=== PATIENT | female | born 1950 | race American Indian/Alaskan Native ===

== ENCOUNTER 2017-07-20 12:20 | Emergency (ER) | payer MEDICARE ==
[2017-07-20 12:42] VITALS: BP 139/95
[2017-07-20] MEDS ORDERED: XYLOCAINE 2% INFILTRATI ONE ×2 (13:59→16:18)
--- NOTE | 2017-07-20 14:29 | Emergency Department Report ---
HPI - General Chief Complaint: Dental/Oral Time Seen by Provider: 07/20/17 14:12 - HPI HPI: 67-year-old black female is an ED today stating that a can fell on right lip while at a store. Complain of right inner lip laceration, bleeding controlled. ED Past Medical Hx - Past Medical History Previous Medical History?: Yes Hx Hypertension: Yes Hx GERD: Yes Additional medical history: BENIGN TREMORS - Surgical History Past Surgical History?: Yes Hx Appendectomy: Yes Additional Surgical History: hysterectomy - Social History Smoking Status: Former Smoker Substance Use Type: Alcohol, Marijuana - Medications Home Medications: Home Medications Medication Instructions Recorded Confirmed Last Taken Type Cephalexin [Keflex] 500 mg PO TID #21 capsule 07/21/14 Unknown Rx Amoxicillin/Potassium Clav 1 each PO BID #20 tablet 07/20/17 Unknown Rx [Augmentin 875-125 Tablet] traMADol [Ultram] 50 mg PO Q6HR PRN #10 tablet 07/20/17 Unknown Rx ED Review of Systems ROS: Stated complaint: BUSTED LIP Other details as noted in HPI Comment: All other systems reviewed and negative Eyes: denies: eye pain ENT: denies: ear pain, throat pain Respiratory: denies: cough Skin: other (laceration inner lip right side) Physical Exam - Physical Exam Vital Signs: Vital Signs 07/20/17 12:39 Temperature 99.2 F Pulse Rate 85 Respiratory 18 Rate Blood Pressure 139/95 O2 Sat by Pulse 98 Oximetry Physical Exam: Gen. alert and oriented 3 in no distress Head atraumatic normocephalic Eyes PERR LA EOMI Chest regular rate and rhythm normal S1-S2 lungs clear bilaterally Abdomen soft nondistended Back no point tenderness paravertebral tenderness Neuro no focal deficit. Psych normal mood. skin: right inner lip laceration 4 cm. ED Course Vital Signs 07/20/17 12:39 Temperature 99.2 F Pulse Rate 85 Respiratory 18 Rate Blood Pressure 139/95 O2 Sat by Pulse 98 Oximetry - Laceration /Wound Repair Right Face Wound Location: face, mouth Wound's Depth, Shape: linear Wound Explored: no foreign body removed Anesthesia: 1% Lidocaine Wound Debrided: moderate Wound Repaired With: sutures Suture Size/Type: 4:0 Number of Sutures: 5 Layer Closure?: Yes Critical care attestation.: If time is entered above; I have spent that time in minutes in the direct care of this critically ill patient, excluding procedure time. ED Disposition Clinical Impression: Laceration of lip with other complication Qualifiers: Encounter type: initial encounter Qualified Code(s): S01.511A - Laceration without foreign body of lip, initial encounter Disposition: TO HOME OR SELFCARE Is pt being admited?: No Does the pt Need Aspirin: No Condition: Stable Prescriptions: Amoxicillin/Potassium Clav [Augmentin 875-125 Tablet] 1 each PO BID #20 tablet traMADol [Ultram] 50 mg PO Q6HR PRN #10 tablet PRN Reason: Pain Referrals: ANGEL GARCIA MD [Primary Care Provider] - 3-5 Days BETO ALBRIGHT MD [Staff Physician] - 3-5 Days
== END 2017-07-20 14:39 | disposition home or self-care (01) ==
LOC: ED 12:20
DX: S01.511A Laceration without foreign body of lip, initial encounter (principal); I10 Essential (primary) hypertension; K21.9 Gastro-esophageal reflux disease without esophagitis; Z87.891 Personal history of nicotine dependence; Z90.49 Acquired absence of other specified parts of digestive tract; Z90.710 Acquired absence of both cervix and uterus; W26.8XXA Contact with other sharp object(s), not elsewhere classified, initial encounter; Y93.89 Activity, other specified; Y92.89 Other specified places as the place of occurrence of the external cause; Y99.8 Other external cause status
CPT/HCPCS: 99282

== ENCOUNTER 2017-10-23 01:15 | Emergency (ER) | payer MEDICARE ==
[2017-10-23 01:28] VITALS: BP 126/72
--- NOTE | 2017-10-23 03:28 | Cat Scan Report ---
FINAL REPORT EXAM: CT HEAD/BRAIN WO CON HISTORY: head Injury TECHNIQUE: Routine axial imaging was obtained of the brain without IV contrast. FINDINGS: The ventricular system is appropriate in size and is symmetric. There is diminished attenuation of the periventricular white matter compatible with chronic microvascular disease changes. There is no evidence of acute stroke or hemorrhage. There is no evidence of skull fracture. The mastoid air cells are well pneumatized. The sinuses reveal patchy mucosal thickening in the right ethmoid air cells. There is a deformity of the left side of the nasal bone compatible with fracture of uncertain age. IMPRESSION: No evidence of acute stroke or hemorrhage. Diminished attenuation of the periventricular white matter compatible chronic microvascular disease changes. Deformity of the left-sided nasal bone compatible with fracture of uncertain age.
--- NOTE | 2017-10-23 03:32 | Cat Scan Report ---
FINAL REPORT EXAM: CT FACIAL BONES WO CON HISTORY: left face swelling and right jaw pain TECHNIQUE: Routine axial imaging was obtained of the facial bones without IV contrast. Sagittal and coronal reconstructions were reviewed also. FINDINGS: There is soft tissue swelling overlying the left cheek area overlying the anterior wall of the left maxillary sinus. Additional swelling is seen along the body of the mandible on the left side and along the right submental area. There is no evidence of fracture. The orbital rims and floors appear intact. The sinuses reveal patchy mucosal thickening in the right max sinus. The zygomatic arches appear intact. There is chronic deformity of the nasal bones suggesting remote fractures. The intraorbital structures otherwise well maintained. IMPRESSION: Nonspecific soft swelling overlying left side of the body of the mandible and in the right submental area. Additional swelling overlying the left cheek area. As to whether these findings related to is cellulitis is uncertain. Chronic fracture deformities of the nasal bone. No definite acute fracture of the facial bones identified.
[2017-10-23] MEDS ORDERED: MOTRIN PO ONE (04:36)
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
== END 2017-10-23 04:56 | disposition home or self-care (01) ==
LOC: ED 01:15
DX: S00.83XA Contusion of other part of head, initial encounter (principal); I10 Essential (primary) hypertension; K21.9 Gastro-esophageal reflux disease without esophagitis; Z90.710 Acquired absence of both cervix and uterus; Y04.8XXA Assault by other bodily force, initial encounter; Y93.89 Activity, other specified; Y92.89 Other specified places as the place of occurrence of the external cause; Y99.8 Other external cause status
CPT/HCPCS: 70450; 70486; 99283